=== PATIENT | female | born 1975 | race Caucasian/White ===

== ENCOUNTER 2016-11-11 16:55 | Emergency (ER) | payer MEDICAID ==
[~2016-11-11] VITALS: Ht 157.5 cm; Wt 97.5 kg
[~2016-11-11 16:55] MED LIST: CETI-32 PO; FLUO40CA6 PO; OMEP40EC14 PO
[2016-11-11 16:59] VITALS: BP 122/81
--- NOTE | 2016-11-11 17:29 | NUR ---
Patient ambulated to bed 3 after providing a urine specimen. RN evaluating patient at bedside.
--- NOTE | 2016-11-11 17:35 | NUR ---
41F BIB SON C/O LOWER BACK PAIN, SHARP, NON-RADIATING, 9/10 X YESTERDAY; PT DENIES TRAUMA OR INJURY TO SITE AT THIS TIME; PT AA&OX4, PERRLA, BL LUNG SOUNDS CLEAR, RR EVEN/UNLABORED, SKIN IS WARM/DRY/INTACT AT THIS TIME; PT STATES NO N/V/D AT THIS TIME; HX: GERD; FIBROMYALGIA; PT RESTING IN BED BED W/ HOB ELEVATED AND IN LOWEST POSITION; POSITIONED FOR COMFORT; ER MD MADE AWARE OF STATUS. WILL CONTINUE TO MONITOR.
[2016-11-11] MEDS ORDERED: HYDROmorphone PFS 2 MG/ML SYR IM ONE (17:40)
[2016-11-11] MEDS ORDERED: ONDANSETRON 4 MG/2 ML VIAL IM ONE (17:40)
[2016-11-11 17:54] LABS: APPEARANCE,URINE CLEAR (CLEAR); BILIRUBIN,URINE NEGATIVE (NEGATIVE); BLOOD, URINE TRACE-I (NEGATIVE); COLOR,URINE YELLOW (YELLOW); LEUKOCYTE ESTERASE ,URINE NEGATIVE (NEGATIVE); NITRITE, URINE NEGATIVE (NEGATIVE); PH,URINE 5.5 (5.0-9.0); PROTEIN,URINE NEGATIVE (NEGATIVE); UGLUCOSE NEGATIVE (NEGATIVE); UROBILINOGEN,URINE 0.2 EU/dL (0.2 - 1)
[2016-11-11 18:18] VITALS: BP 124/62
[2016-11-11 18:18] LABS: BACTERIA,URINE FEW /HPF (None Seen); RBC,URINE 0-2 /HPF (0-5); SQUAMOUS EPITHELIAL CELL,UR 0-3 (FEW) /LPF (0-3 (FEW)); WBC,URINE 0-5 (RARE) /HPF (0-5)
--- NOTE | 2016-11-11 18:18 | NUR ---
Patient discharged with v/s stable. Written and verbal after care instructions given and explained. Patient alert, oriented and verbalized understanding of instructions. Ambulatory with steady gait. All questions addressed prior to discharge. ID band removed. Patient advised to follow up with PMD. Rx of NORCO 5MG-325MG TAB, FLEXERIL 10MG TAB & ZOFRAN ODT 4MG given. Patient educated on indication of medication including possible reaction and side effects. Opportunity to ask questions provided and answered.
== END 2016-11-11 18:18 | disposition home or self-care (01) ==
LOC: MED 16:55
DX: G89.29 Other chronic pain (principal); M54.5 Low back pain; K21.9 Gastro-esophageal reflux disease without esophagitis; M79.7 Fibromyalgia; Z88.0 Allergy status to penicillin; Z88.8 Allergy status to other drugs, medicaments and biological substances
CPT/HCPCS: 81001; 81025; 96372; 96374; 99284; J1170; J2405

== ENCOUNTER 2017-02-01 19:59 | Emergency (ER) | payer MEDICAID ==
[~2017-02-01] VITALS: Ht 157.5 cm; Wt 97.5 kg
[2017-02-01 20:23] VITALS: BP 150/65
--- NOTE | 2017-02-01 23:36 | NUR ---
Patient ambulated to bed 3. RN evaluating patient at bedside.
[2017-02-02] MEDS ORDERED: HYDROmorphone 1 MG/ML AMP IM ONE
--- NOTE | 2017-02-02 | NUR ---
PT BIB FAMILY C/O BACK PAIN WITH DARRHEA X 2 DAYS. HX. FIBROMYALGIA, DEPRESSION, ANXIETY. PT DENIES ANY TRAUMA, PT DENIES N/V/D; SKIN IS INTACT, PINK/WARM/DRY; AAOX4, PERRL, WITH EVEN AND STEADY GAIT; LUNGS CLEAR BL, BREATHING UNLABORED; HR EVEN AND REGULAR, BL PERIPHERAL PULSES PRESENT; BS ACTIVE X4, NO TENDERNESS TO PALPATION. PT DENIES ANY FEVER, CP, SOB, OR COUGH AT THIS TIME; PT STATES 5/10 PAIN AT THIS TIME; VSS; PATIENT POSITIONED FOR COMFORT; HOB ELEVATED; BEDRAILS UP X2; BED DOWN.
--- NOTE | 2017-02-02 00:44 | NUR ---
Patient discharged with v/s stable. Written and verbal after care instructions given and explained. Patient alert, oriented and verbalized understanding of instructions. Ambulatory with steady gait. All questions addressed prior to discharge. ID band removed. Patient advised to follow up with PMD. Rx of Tramadol 50mg, Medrol Dosepak 4mg and Motrin 800mg given. Patient educated on indication of medication including possible reaction and side effects. Opportunity to ask questions provided and answered.
[2017-02-02 00:45] VITALS: BP 119/82
== END 2017-02-02 00:44 | disposition home or self-care (01) ==
LOC: MED 19:59
DX: G89.29 Other chronic pain (principal); M54.5 Low back pain; R03.0 Elevated blood-pressure reading, without diagnosis of hypertension; K21.9 Gastro-esophageal reflux disease without esophagitis; Z88.0 Allergy status to penicillin; Z88.8 Allergy status to other drugs, medicaments and biological substances
CPT/HCPCS: 81025; 96372; 99283; J1170

== ENCOUNTER 2017-02-28 17:01 | Emergency (ER) | payer MEDICAID, OTHER ==
[~2017-02-28] VITALS: Ht 157.5 cm; Wt 97.5 kg
[~2017-02-28 17:01] MED LIST changes: +BUTALBITAL ACET1 CAP PO; -CETI-32 PO; +DILAUDID2 M1 PO; +DILAUDID2 MG PO; -FLUO40CA6 PO; +NABUMETONE750 M1 PO; +NORCO 5/325 MG1 TAB PO; -OMEP40EC14 PO; +OMEPRAZOLE40 MG PO; +PROZAC40 MG PO; +TYLENOL ES500 MG PO; +ZYRTEC10 MG PO
[2017-02-28 17:12] VITALS: BP 149/88
[2017-02-28] MEDS: HYDROmorphone 1 MG/ML AMP IM ONE (17:40)
[2017-02-28 17:57] VITALS: BP 137/87
== END 2017-02-28 17:57 | disposition home or self-care (01) ==
LOC: MED 17:01
DX: Z76.0 Encounter for issue of repeat prescription (principal); M54.5 Low back pain; G89.29 Other chronic pain; Z88.0 Allergy status to penicillin; Z88.8 Allergy status to other drugs, medicaments and biological substances; F41.9 Anxiety disorder, unspecified; F32.9 Major depressive disorder, single episode, unspecified; M79.7 Fibromyalgia
CPT/HCPCS: 96372; 99283; J1170

== ENCOUNTER 2017-11-07 13:50 | Emergency (ER) | payer OTHER ==
[~2017-11-07] VITALS: Ht 157.5 cm; Wt 104.8 kg
[~2017-11-07 13:50] MED LIST changes: -BUTALBITAL ACET1 CAP PO; +CETI-32 PO; -DILAUDID2 M1 PO; -DILAUDID2 MG PO; +FLUO40CA6 PO; -NABUMETONE750 M1 PO; -NORCO 5/325 MG1 TAB PO; +OMEP40EC14 PO; -OMEPRAZOLE40 MG PO; -PROZAC40 MG PO; -TYLENOL ES500 MG PO; -ZYRTEC10 MG PO
[2017-11-07 14:20] VITALS: BP 145/90
--- NOTE | 2017-11-07 14:28 | NUR ---
PT AMBULATES TO BED 4, REPORT GIVEN TO SEEMA CORDOVA
--- NOTE | 2017-11-07 14:31 | NUR ---
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 AAOX4; PATIENT POSITIONED FOR COMFORT; HOB ELEVATED; BEDRAILS UP X2; BED DOWN. ER MD MADE AWARE OF PT STATUS.
[2017-11-07] MEDS ORDERED: MORPHINE SULFATE 4 MG/ML SYR IM ONE (16:25)
[2017-11-07 17:00] VITALS: BP 143/89
--- NOTE | 2017-11-07 17:00 | NUR ---
Patient discharged with v/s stable. Written and verbal after care instructions given and explained. Patient verbalized understanding. Ambulatory with steady gait. All questions addressed prior to discharge. Advised to follow up with PMD.
== END 2017-11-07 17:00 | disposition home or self-care (01) ==
LOC: MED 13:50
DX: M54.5 Low back pain (principal); K21.9 Gastro-esophageal reflux disease without esophagitis; M79.7 Fibromyalgia; F41.9 Anxiety disorder, unspecified; F32.9 Major depressive disorder, single episode, unspecified; Z79.899 Other long term (current) drug therapy; Z88.0 Allergy status to penicillin; Z88.8 Allergy status to other drugs, medicaments and biological substances
CPT/HCPCS: 81002; 81025; 96372; 99283; J2270

== ENCOUNTER 2017-12-09 17:20 | Emergency (ER) | payer OTHER ==
[~2017-12-09] VITALS: Ht 157.5 cm; Wt 106.1 kg
[2017-12-09 17:30] VITALS: BP 148/77
--- NOTE | 2017-12-09 17:35 | NUR ---
Patient ambulated to bed 7 with family. RN evaluating patient at bedside.
--- NOTE | 2017-12-09 17:35 | NUR ---
Gave report to [place] STEPHENSON
--- NOTE | 2017-12-09 17:46 | NUR ---
42YO F with c/o bl lower back AND MID BACK and generalized abdomen pain with anxiety. PT DENIES N/V, ABD, CP SOB, FEVER OR COUGH. WILL CONTINUE TO MONITOR hx-depression, anxiety, osteoarthitits, fibromyalgia, GERD
--- NOTE | 2017-12-09 18:14 | NUR ---
network operations center technician at bedside.
[2017-12-09 18:57] VITALS: BP 136/79
== END 2017-12-09 18:57 | disposition home or self-care (01) ==
LOC: MED 17:20
DX: K59.03 Drug induced constipation (principal); T40.605A Adverse effect of unspecified narcotics, initial encounter; Y92.89 Other specified places as the place of occurrence of the external cause; F41.9 Anxiety disorder, unspecified; M79.7 Fibromyalgia; Z88.0 Allergy status to penicillin; Z88.8 Allergy status to other drugs, medicaments and biological substances
CPT/HCPCS: 74018; 81002; 81025; 99283

== ENCOUNTER 2017-12-19 15:38 | Emergency (ER) | payer OTHER ==
[~2017-12-19] VITALS: Ht 157.5 cm; Wt 104.3 kg
[2017-12-19 15:52] VITALS: BP 137/79
[2017-12-19] MEDS ORDERED: FLUCONAZOLE 100 MG TAB PO ONE (16:50)
[2017-12-19] MEDS ORDERED: KETOROLAC 60 MG/2 ML VIAL IM ONE (16:50)
[2017-12-19 17:09] LABS: APPEARANCE,URINE CLEAR (CLEAR); BILIRUBIN,URINE NEGATIVE (NEGATIVE); BLOOD, URINE TRACE-L (NEGATIVE); COLOR,URINE YELLOW (YELLOW); LEUKOCYTE ESTERASE ,URINE NEGATIVE (NEGATIVE); NITRITE, URINE NEGATIVE (NEGATIVE); PH,URINE 5.5 (5.0-9.0); UGLUCOSE NEGATIVE (NEGATIVE)
[2017-12-19 17:23] LABS: RBC,URINE NONE SEEN /HPF (0-5); WBC,URINE 0-5 (RARE) /HPF (0-5)
[2017-12-19] MEDS ORDERED: FLUCONAZOLE 100 MG TAB PO SCH (17:30)
[2017-12-19] MEDS ORDERED: hydrOXYzine HCL 25 MG TAB PO ONE (17:30)
[2017-12-19 18:17] VITALS: BP 129/71
== END 2017-12-19 18:18 | disposition home or self-care (01) ==
LOC: MED 15:38
DX: L29.2 Pruritus vulvae (principal); M79.7 Fibromyalgia; K21.9 Gastro-esophageal reflux disease without esophagitis; Z88.0 Allergy status to penicillin; Z88.8 Allergy status to other drugs, medicaments and biological substances; Z79.899 Other long term (current) drug therapy
CPT/HCPCS: 81001; 96372; 99283; J1885

== ENCOUNTER 2017-12-22 13:08 | Emergency (ER) | payer OTHER ==
[~2017-12-22] VITALS: Ht 157.5 cm; Wt 102.1 kg
[2017-12-22 13:18] VITALS: BP 127/78
--- NOTE | 2017-12-22 13:23 | NUR ---
42 Y/O F PRESENTS TO THE ED W/C/O L INGUINAL PAIN X2DAYS. PT DENIES N/V/D; SKIN IS INTACT, PINK/WARM/DRY; SWELLING TO L LEG NOTED;AAOX4, PERRL, WITH EVEN AND STEADY GAIT; LUNGS CLEAR BL, BREATHING UNLABORED; HR EVEN AND REGULAR, BL PERIPHERAL PULSES PRESENT; BS ACTIVE X4, NO TENDERNESS TO PALPATION, NO HEPATOSPLENOMEGALLY PALPATED, RESONANT TO PERCUSSION; PT DENIES ANY FEVER, CP, SOB, OR COUGH AT THIS TIME; PT STATES 7/10 PAIN AT THIS TIME AND THAT IT FEELS SHARP AND RADIATES DOWN THE L LEG; VSS; PATIENT POSITIONED FOR COMFORT; HOB ELEVATED; BEDRAILS UP X2; BED DOWN.ER MADE AWARE
[2017-12-22] MEDS ORDERED: NACL 0.9% 1,000 ML IV SCH (13:28)
[2017-12-22] MEDS ORDERED: KETOROLAC 30 MG/ML VIAL IVP ONE (13:30)
[2017-12-22] MEDS ORDERED: fentaNYL 0.05 MG/ML VIAL IVP ONE (13:30)
--- NOTE | 2017-12-22 13:43 | NUR ---
PHLEB AT BEDSIDE AT THIS TIME.
--- NOTE | 2017-12-22 13:45 | NUR ---
REPORT GIVEN TO VALERY SETPHENSON
[2017-12-22 14:05] LABS: APPEARANCE,URINE CLEAR (CLEAR); BILIRUBIN,URINE NEGATIVE (NEGATIVE); BLOOD, URINE TRACE-L (NEGATIVE); COLOR,URINE YELLOW (YELLOW); LEUKOCYTE ESTERASE ,URINE NEGATIVE (NEGATIVE); NITRITE, URINE NEGATIVE (NEGATIVE); UGLUCOSE NEGATIVE (NEGATIVE)
[2017-12-22 14:06] LABS: BASOPHILS % (AUTO) 0.4 % (0.0-2.0); EOSINOPHILS # (AUTO) 0.4 K/uL (0-0.4); EOSINOPHILS % (AUTO) 5.1 % (0.0-4.0); HEMATOCRIT 31.6 % (36-48); HEMOGLOBIN 9.7 g/dL (12.0-16.0); LYMPHOCYTES # (AUTO) 2.4 K/uL (2.5-16.5); LYMPHOCYTES % (AUTO) 28.7 % (20.5-51.1); MEAN CORPUSCULAR HEMOGLOBIN 23 pg (27-31); MEAN CORPUSCULAR HGB CONC 31 g/dL (33-37); MEAN CORPUSCULAR VOLUME 72.9 fL (80-94); MONOCYTES # (AUTO) 0.5 K/uL (0.8-1.0); MONOCYTES % (AUTO) 6.4 % (1.7-9.3); NEUTROPHILS # (AUTO) 4.9 K/uL (1.8-7.7); NEUTROPHILS % (AUTO) 59.4 % (42.2-75.2); PLATELET COUNT (AUTO) 303 K/uL (140-450); RED BLOOD CELL COUNT(AUTO) 4.34 MIL/uL (4.20-5.40); RED CELL DISTRIBUTION WIDTH 17.7 % (11.6-13.7); WHITE BLOOD COUNT (AUTO) 8.2 K/uL (4.8-10.8)
--- NOTE | 2017-12-22 14:15 | NUR ---
pt to ct at this time via w/c w/o incident
[2017-12-22 14:19] LABS: RBC,URINE 3-10 (FEW) /HPF (0-5); WBC,URINE 0-5 (RARE) /HPF (0-5)
[2017-12-22 14:26] LABS: ALBUMIN 3.4 g/dL (3.4-5.0); ANION GAP 11.6 (8-16); CARBON DIOXIDE 26.1 mmol/L (21-32); CREATININE 0.7 mg/dL (0.6-1.3); POTASSIUM 3.7 mmol/L (3.5-5.1); TOTAL BILIRUBIN 0.3 mg/dL (0.0-1.0)
[2017-12-22] MEDS ORDERED: MORPHINE SULFATE 2 MG/ML SYR ONE (14:53)
[2017-12-22] MEDS ORDERED: MORPHINE SULFATE 2 MG/ML SYR IVP ONE (14:55)
[2017-12-22 16:27] VITALS: BP 129/77
== END 2017-12-22 16:29 | disposition home or self-care (01) ==
LOC: MED 13:08
DX: R10.2 Pelvic and perineal pain (principal); G89.29 Other chronic pain; E66.9 Obesity, unspecified; M54.5 Low back pain; K21.9 Gastro-esophageal reflux disease without esophagitis; Z88.0 Allergy status to penicillin; Z91.09 Other allergy status, other than to drugs and biological substances; Z79.899 Other long term (current) drug therapy
CPT/HCPCS: 36415; 74176; 80053; 81001; 81025; 82150; 83690; 84703; 85025; 96374; 96375; 99285; J1885; J2270; J3010; J7030

== ENCOUNTER 2019-02-13 21:37 | Emergency (ER) | payer OTHER ==
[~2019-02-13] VITALS: Ht 157.5 cm; Wt 105.2 kg
--- NOTE | 2019-02-13 21:39 | NUR ---
CALLED PT FOR TRIAGE, NO RESPONSE
[2019-02-13 21:43] VITALS: BP 139/80
--- NOTE | 2019-02-13 21:48 | NUR ---
PT TO [facility] AFTER URINE SAMPLE. AA0X4. VSS
--- NOTE | 2019-02-13 21:51 | NUR ---
PT UNABLE TO GIVE URINE AT THIS TIME
--- NOTE | 2019-02-13 22:17 | NUR ---
PT AMBULATED TO BED 05.
--- NOTE | 2019-02-13 22:20 | NUR ---
43/F PRESENTED TO ED C/O DIZZINESSX SUNDAY, HEADACHE, AND LOOSE STOOLX 4 DAYS. DENIES CP, BLURRY VISION, OR NUMBNESS. PAIN 5/10 PRESSURE. PAST MED HX ANEMIA, FIBROMYAGLIA, TENDONITIS. RX DILADID, LYRICA, OMEPROZOLE, GABAPENTIN. VSS. WILL CONTINUE TO MONITOR.
[2019-02-13] MEDS ORDERED: DIAZEPAM 5 MG TAB PO ONE (23:05)
[2019-02-13] MEDS ORDERED: ONDANSETRON 4 MG ODT PO ONE (23:05)
--- NOTE | 2019-02-13 23:36 | NUR ---
FAMILY AT BEDSIDE. NO SIGNS OF DISTRESS. NS FLUIDS ESTABLISHED.
--- NOTE | 2019-02-14 00:06 | NUR ---
PT IS SLEEPING IN BED. NO SIGNS OF DISTRESS. NS STILL INFUSING. EASILY AROUSABLE. PT REMAINS ALOC. WILL CONTINUE TO MONITOR.
[2019-02-14 01:21] VITALS: BP 135/75
--- NOTE | 2019-02-14 01:21 | NUR ---
PT DISCHARGED WITH PAPER. RX NAPROSYN AND LIDODERM PATCH. EDUCATED PT REGARDING MEDICATIONS AND S/E. EDUCATED PT REGARDING D/C DIAGNOSIS AND INSTRUCTIONS. PT VERBALIZED UNDERSTANDING OF TEACHING. TOLD PT TO FOLLOW UP WITH PCP AND WHEN TO RETURN TO ED. PT VSS. ALL QUESTIONS ANSWERED.
== END 2019-02-14 01:21 | disposition home or self-care (01) ==
LOC: MED 21:37
DX: R51 Headache (principal); K21.9 Gastro-esophageal reflux disease without esophagitis; F32.9 Major depressive disorder, single episode, unspecified; F41.9 Anxiety disorder, unspecified; G43.909 Migraine, unspecified, not intractable, without status migrainosus; Z98.890 Other specified postprocedural states; Z79.899 Other long term (current) drug therapy; Z88.0 Allergy status to penicillin; Z88.8 Allergy status to other drugs, medicaments and biological substances
CPT/HCPCS: 70450; 99284; Q0162

== ENCOUNTER 2019-02-23 15:57 | Emergency (ER) | payer OTHER ==
[~2019-02-23] VITALS: Ht 157.5 cm; Wt 95.3 kg
[2019-02-23 16:09] VITALS: BP 113/59
[2019-02-23] MEDS ORDERED: MORPHINE SULFATE 2 MG/ML SYR IM ONE (16:45)
[2019-02-23 16:55] LABS: BILIRUBIN,URINE NEGATIVE (NEGATIVE); BLOOD, URINE TRACE-L (NEGATIVE); COLOR,URINE YELLOW (YELLOW); LEUKOCYTE ESTERASE ,URINE TRACE (NEGATIVE); NITRITE, URINE NEGATIVE (NEGATIVE); UGLUCOSE NEGATIVE (NEGATIVE)
[2019-02-23 17:05] LABS: APPEARANCE,URINE HAZY (CLEAR)
[2019-02-23 17:10] LABS: RBC,URINE 0-5 /HPF (0-5); WBC,URINE 0-5 /HPF (0-5)
[2019-02-23 18:48] VITALS: BP 120/76
== END 2019-02-23 18:48 | disposition home or self-care (01) ==
LOC: MED 15:57
DX: D25.9 Leiomyoma of uterus, unspecified (principal); N83.202 Unspecified ovarian cyst, left side; K21.9 Gastro-esophageal reflux disease without esophagitis; Z87.39 Personal history of other diseases of the musculoskeletal system and connective tissue; Z79.899 Other long term (current) drug therapy
CPT/HCPCS: 76856; 81001; 81025; 96372; 99284; J2270; Q0092

== ENCOUNTER 2020-05-06 18:35 | Emergency (ER) | payer OTHER ==
[~2020-05-06] VITALS: Ht 157.5 cm; Wt 108.9 kg
[~2020-05-06 18:35] MED LIST changes: -CETI-32 PO; +CETI10TA81 PO
[2020-05-06 19:07] VITALS: BP 139/80
--- NOTE | 2020-05-06 22:09 | NUR ---
PATIENT PRESENTS TO ED WITH ABD PAIN AND PELVIC CRAMPING X2W. PT STATES SHE ALSO HAS VAGINAL SPOTTING. DENIES N/V/D; SKIN IS PINK/WARM/DRY; AAOX4 WITH EVEN AND STEADY GAIT; LUNGS CLEAR BL; HR EVEN AND REGULAR; PT DENIES ANY FEVER, CP, SOB, OR COUGH AT THIS TIME; PATIENT STATES PAIN OF 7/10 AT THIS TIME; VSS; PATIENT POSITIONED FOR COMFORT; HOB ELEVATED; BEDRAILS UP X2; BED DOWN. ER MD MADE AWARE OF PT STATUS. NO PMH ALLERGIES: PENICILLINS AND REGLAN
[2020-05-06 22:26] VITALS: BP 139/80
== END 2020-05-06 22:26 | disposition home or self-care (01) ==
LOC: MED 18:35
DX: D25.9 Leiomyoma of uterus, unspecified (principal); K21.9 Gastro-esophageal reflux disease without esophagitis; Z88.0 Allergy status to penicillin; Z88.8 Allergy status to other drugs, medicaments and biological substances; Z98.51 Tubal ligation status; Z87.19 Personal history of other diseases of the digestive system; Z79.899 Other long term (current) drug therapy
CPT/HCPCS: 76830; 81002; 81025; 99284

== ENCOUNTER 2020-05-28 19:05 | Emergency (ER) | payer OTHER ==
[~2020-05-28] VITALS: Ht 157.5 cm; Wt 104.3 kg
[2020-05-28 19:40] VITALS: BP 144/91
--- NOTE | 2020-05-28 20:40 | NUR ---
ERMD EVALUATING PATIENT IN TENT.
--- NOTE | 2020-05-28 21:46 | NUR ---
NOVEL COVID SWAB COLLECTED. ERMD EVALUATED, TREATED, AND D/C PATIENT. NO NURSING INTERVENTION NEEDED.
[2020-05-28 21:47] VITALS: BP 138/87
== END 2020-05-28 21:47 | disposition home or self-care (01) ==
LOC: MED 19:05
DX: U07.1 COVID-19 (principal); K21.9 Gastro-esophageal reflux disease without esophagitis; Z88.0 Allergy status to penicillin; Z88.5 Allergy status to narcotic agent; Z79.899 Other long term (current) drug therapy
CPT/HCPCS: 99283; U0003

== ENCOUNTER 2021-03-02 12:23 | Emergency (ER) | payer OTHER ==
[~2021-03-02] VITALS: Ht 157.5 cm; Wt 99.8 kg
[~2021-03-02 12:23] MED LIST changes: -OMEP40EC14 PO; +OMEP40EC23 PO
[2021-03-02 12:40] VITALS: BP 151/95
--- NOTE | 2021-03-02 12:48 | NUR ---
PT SENT TO LOBBY
[2021-03-02] MEDS ORDERED: SODIUM CHLORIDE FLUSH 10 ML SYR IVF STA (13:57)
--- NOTE | 2021-03-02 14:20 | NUR ---
45/F BIB SELF WITH C/O ABDOMINAL PAIN AND RECTAL PAIN. STATES FOR ONE MONTH HAS BEEN HAVING PAINFUL LOOSE BOWEL MOVEMENTS AND HAS BEEN NOTICING BLOOD IN HER STOOL. STATING IN THE PAST WEEK SHE HAS BEEN HAVING INTERMITTENT CRAMPING ABDOMINAL PAIN. REPORTS TAKING DILAUDID AT HOME WITH MILD RELIEF. MEDHX: FIBROMYALGIA, GERD, BURSITIS ALLERGIES: PENICILLINS, METOCLOPRAMIDE
[2021-03-02 14:41] LABS: BASOPHILS # (AUTO) 0.1 K/uL (0.00-0.22); BASOPHILS % (AUTO) 0.9 % (0.0-2.0); EOSINOPHILS # (AUTO) 0.3 K/uL (0-0.4); HEMATOCRIT 35.8 % (36-48); HEMOGLOBIN 11.6 g/dL (12.0-16.0); LYMPHOCYTES # (AUTO) 2.1 K/uL (2.5-16.5); LYMPHOCYTES % (AUTO) 20.4 % (20.5-51.1); MEAN CORPUSCULAR HEMOGLOBIN 26 pg (27-31); MEAN CORPUSCULAR HGB CONC 33 g/dL (33-37); MEAN CORPUSCULAR VOLUME 78.4 fL (80-94); MONOCYTES # (AUTO) 0.6 K/uL (0.8-1.0); MONOCYTES % (AUTO) 6.1 % (1.7-9.3); NEUTROPHILS # (AUTO) 7.2 K/uL (1.8-7.7); PLATELET COUNT (AUTO) 335 K/uL (140-450); RED BLOOD CELL COUNT(AUTO) 4.56 MIL/uL (4.20-5.40); RED CELL DISTRIBUTION WIDTH 15.6 % (11.6-13.7); WHITE BLOOD COUNT (AUTO) 10.4 K/uL (4.8-10.8)
[2021-03-02 14:42] LABS: APPEARANCE,URINE SL CLOUDY (CLEAR); BILIRUBIN,URINE NEGATIVE (NEGATIVE); BLOOD, URINE 2+ (NEGATIVE); COLOR,URINE YELLOW (YELLOW); LEUKOCYTE ESTERASE ,URINE NEGATIVE (NEGATIVE); NITRITE, URINE NEGATIVE (NEGATIVE); UGLUCOSE NEGATIVE (NEGATIVE)
[2021-03-02 14:55] LABS: NEUTROPHILS % (AUTO) 69.6 % (42.2-75.2)
--- NOTE | 2021-03-02 14:57 | NUR ---
XRAY AT BEDSIDE
[2021-03-02 14:59] LABS: ALBUMIN 3.6 g/dL (3.4-5.0); ANION GAP 14.7 (8-16); CARBON DIOXIDE 25.1 mmol/L (21-32); CREATININE 0.7 mg/dL (0.6-1.3); POTASSIUM 3.8 mmol/L (3.5-5.1); TOTAL BILIRUBIN 0.3 mg/dL (0.0-1.0)
--- NOTE | 2021-03-02 15:23 | NUR ---
PT TAKEN TO CT VIA ROMMEL
[2021-03-02] MEDS ORDERED: MORPHINE SULFATE 4 MG/ML SYR IVP ONE (15:25)
[2021-03-02 15:38] LABS: WBC,URINE NONE SEEN /HPF (0-5)
--- NOTE | 2021-03-02 15:40 | NUR ---
PT BACK FROM CT
[2021-03-02] MEDS ORDERED: MORPHINE SULFATE 4 MG/ML SYR ONE (16:30)
[2021-03-02 17:00] VITALS: BP 125/71
== END 2021-03-02 17:35 | disposition home or self-care (01) ==
LOC: MED 12:23
DX: M54.9 Dorsalgia, unspecified (principal)
CPT/HCPCS: 36415; 71045; 74177; 80053; 81001; 81025; 83690; 84484; 85025; 93005; 96374; 99285; J2270; Q0092; Q9967

== ENCOUNTER 2021-04-29 15:19 | Emergency (ER) | payer OTHER ==
[~2021-04-29] VITALS: Ht 157.5 cm; Wt 110.7 kg
[2021-04-29 15:42] VITALS: BP 156/98
[2021-04-29] MEDS ORDERED: MORPHINE SULFATE 4 MG/ML SYR IM ONE (16:30)
[2021-04-29] MEDS ORDERED: ACET-8386 PO (16:32)
--- NOTE | 2021-04-29 16:47 | NUR ---
45 y/o f bib self from home, Patient presents to ED with low back pain 02/04 with hx of chronic back pain. Patient States she has appointment with care provider on 05/04 and was instructed to come to ED for pain management. pt also states she is out of her medication for 1 week and has been in severe pain. DENIES N/V/D; SKIN IS PINK/WARM/DRY; AAOX4 WITH EVEN AND STEADY GAIT; LUNGS CLEAR BL; HR EVEN AND REGULAR; PT DENIES ANY FEVER, CP, SOB, OR COUGH AT THIS TIME; VSS; ER MD MADE AWARE OF PT STATUS. pmh: chronic back pain, fibromyalgia, brusitis allergy: penicillin, reglan, citrus fruit med: diladid, lamictal, lyrica
[2021-04-29 16:49] VITALS: BP 156/98
== END 2021-04-29 16:52 | disposition home or self-care (01) ==
LOC: MED 15:19
DX: M54.50 Low back pain, unspecified (principal); G89.29 Other chronic pain; K21.9 Gastro-esophageal reflux disease without esophagitis; Z98.51 Tubal ligation status; Z79.891 Long term (current) use of opiate analgesic; Z79.899 Other long term (current) drug therapy; Z88.0 Allergy status to penicillin; Z88.8 Allergy status to other drugs, medicaments and biological substances
CPT/HCPCS: 96372; 99283; J2270

== ENCOUNTER 2021-05-05 15:35 | Emergency (ER) | payer OTHER ==
[~2021-05-05] VITALS: Ht 157.5 cm; Wt 110.3 kg
[~2021-05-05 15:35] MED LIST changes: +ACET-8386 PO
[2021-05-05 15:47] VITALS: BP 154/102
[2021-05-05] MEDS ORDERED: MORPHINE SULFATE 4 MG/ML SYR IM ONE (18:15)
[2021-05-05] MEDS ORDERED: MORPHINE SULFATE 4 MG/ML SYR ONE ×2 (20:52→20:53)
[2021-05-05 22:02] VITALS: BP 147/81
== END 2021-05-05 22:01 | disposition home or self-care (01) ==
LOC: MED 15:35
DX: M54.50 Low back pain, unspecified (principal); M54.2 Cervicalgia; G89.4 Chronic pain syndrome; Z88.0 Allergy status to penicillin; Z88.8 Allergy status to other drugs, medicaments and biological substances; Z79.899 Other long term (current) drug therapy
CPT/HCPCS: 81002; 81025; 96372; 99283; J2270

== ENCOUNTER 2021-05-11 10:39 | Day surgery (SDC) | payer OTHER, SELFPAY ==
[~2021-05-11] VITALS: Ht 157.5 cm; Wt 110.2 kg
[2021-05-11] MEDS ORDERED: diphenhydrAMINE 50 MG/ML VIAL ONE (13:07)
[2021-05-11] MEDS ORDERED: fentaNYL citrate 0.05 MG/ML VIAL ONE (13:07)
[2021-05-11] MEDS ORDERED: MIDAZOLAM 5 MG/5 ML VIAL ONE (13:08)
[2021-05-11] MEDS ORDERED: LIDOCAINE 2% 100 MG/5 ML UJET TP ONE ×2 (13:08→13:35)
[2021-05-11] MEDS ORDERED: diphenhydrAMINE 50 MG/ML VIAL IVP ONE (13:35)
[2021-05-11] MEDS ORDERED: fentaNYL citrate 0.05 MG/ML VIAL IVP ONE (13:35)
[2021-05-11] MEDS ORDERED: MIDAZOLAM 2 MG/2 ML VIAL IVP ONE (13:40)
== END 2021-05-11 14:12 | disposition home or self-care (01) ==
LOC: MDS 10:39 → MMU 10:40 → MDS 14:12
PROVIDERS: ATTEND Internal Medicine Gastroenterology
DX: K62.5 Hemorrhage of anus and rectum (principal); K59.00 Constipation, unspecified; K21.9 Gastro-esophageal reflux disease without esophagitis; Z86.010 Personal history of colon polyps; M19.90 Unspecified osteoarthritis, unspecified site; M79.7 Fibromyalgia; Z88.0 Allergy status to penicillin; Z88.8 Allergy status to other drugs, medicaments and biological substances; Z79.899 Other long term (current) drug therapy; Z20.822 Contact with and (suspected) exposure to COVID-19
CPT/HCPCS: 45378; 81025; 87426; J1200; J2250; J3010

== ENCOUNTER 2021-12-19 11:07 | Emergency (ER) | payer OTHER ==
[~2021-12-19] VITALS: Ht 157.5 cm; Wt 106.6 kg
[2021-12-19 11:17] VITALS: BP 141/91
--- NOTE | 2021-12-19 11:50 | NUR ---
46YO FEMALE PT C/O CONSTANT SHARP/ PRESSURED 8/10 VAGINAL PAIN X1 WEEK. PT REPORTS TENDERNESS AND SUDDEN RED "SPOTS", DENIES DISCHARGE OR ODOR. PT PRESENTS WITH 2 REDDENED SPOTS ON LOWER R LABIA MAJORA AND 2 REDDENED SPOTS ON L MONS PUBIS , ALL <[id number]. NO DISCHARGE OR BLEEDING NOTED. PT STATES TAKING TYLENOL W/ MILD RELIEF. DENIES RECENT CHANGE IN BODY PRODUCTS OR NEW SEXUAL PARTNER. DENIES N/V/D OR CHEST PAIN. PT AAOX4, RESPIRATIONS EVEN AND UNLABORED. HOB POSITIONED PER PT COMFORT. HX: GERD, BIPOLAR, DEPRESSION ALLERGIES: PENICILLIN, REGLAN
--- NOTE | 2021-12-19 11:54 | NUR ---
Female Import/Export Freight Forwarder accompanied female patient for VAGINAL Exam.
[2021-12-19] MEDS ORDERED: HYDROcodone/APAP 5/325 MG 1 TAB TAB PO ONE (12:15)
[2021-12-19] MEDS ORDERED: IBUPROFEN 600 MG TAB PO ONE (12:15)
[2021-12-19] MEDS ORDERED: IBUP-2213 PO (12:25)
[2021-12-19] MEDS ORDERED: ACET-8386 PO (12:25)
[2021-12-19] MEDS ORDERED: ACYC400T14 PO (12:25)
[2021-12-19] MEDS ORDERED: CEPH500C16 PO (12:25)
[2021-12-19 14:40] VITALS: BP 133/80
--- NOTE | 2021-12-19 14:40 | NUR ---
Patient discharged with v/s stable. Written and verbal after care instructions FOR PELVIC PAIN given and explained. Patient alert, oriented and verbalized understanding of instructions. Ambulatory with steady gait. All questions addressed prior to discharge. ID band removed. Patient advised to follow up with PMD. Rx of ZOVIRAX, KEFLEX, HYDROCODONE given. . Opportunity to ask questions provided and answered.
--- NOTE | 2021-12-19 14:41 | NUR ---
Chart checked and completed. The patient's care was reviewed and supervised by Nicolle Hdz RN.
== END 2021-12-19 14:40 | disposition home or self-care (01) ==
LOC: MED 11:07
DX: N89.8 Other specified noninflammatory disorders of vagina (principal); R03.0 Elevated blood-pressure reading, without diagnosis of hypertension; Z88.0 Allergy status to penicillin; Z88.5 Allergy status to narcotic agent; Z88.8 Allergy status to other drugs, medicaments and biological substances; Z79.899 Other long term (current) drug therapy
CPT/HCPCS: 36415; 81002; 81025; 86592; 87491; 87529; 99283